=== PATIENT | female | born 1965 | race Caucasian/White ===

== ENCOUNTER 2021-09-27 08:51 | Emergency (ER) | payer OTHER ==
[~2021-09-27] VITALS: Ht 157.4 cm; Wt 79.4 kg
[~2021-09-27 08:51] MED LIST: HYDROCODONE BIT1 T11 PO; ZOFRAN ODT4 MG SL
[2021-09-27 09:40] LABS: BILIRUBIN Negative (Negative); BLOOD Trace-Intact (Negative); CLARITY Cloudy (Clear); COLOR Yellow (Yellow); GLUCOSE Negative (Negative); KETONE 1+ (Negative); LEUKO ESTERASE Negative (Negative); NITRITE Negative (Negative); SPECIFIC GRAVITY >= 1.030 (1.001-1.030)
[2021-09-27 09:40] LABS: BASO % 0.2 % (0.0-1.0); LYMPH % 19.7 % (27.0-41.0); MEAN CELL VOLUME 90.6 fl (81.0-99.0); MEAN CORPUSCULAR HGB 29.9 pg (27.0-31.0); MEAN PLATELET VOLUME 9.2 fl (9.6-12.3); MONO # 0.3 10*3/uL (0.1-1.0); MONO % 5.8 % (3.0-9.0); NEUT # 3.8 10*3/uL (2.3-7.9); NEUT % 73.9 % (47.0-73.0); PLATELET COUNT AUTOMATED 146 10*3/uL (130-400); RED BLOOD COUNT 5.08 10*6/uL (4.10-5.10); RED CELL DISTRI WIDTH 12.8 % (0-14.5); WHITE BLOOD COUNT 5.2 10*3/uL (4.8-10.8)
[2021-09-27 09:53] LABS: BACTERIA 3+; MUCOUS 2+; RBC 16-20 rbc/hpf (0-2)
[2021-09-27 09:55] LABS: ALBUMIN 2.9 gm/dl (3.1-4.5); ALKALINE PHOSPHATASE 49 U/L (45-117); BUN 12 mg/dl (7-24); CHLORIDE 98 mmol/L (98-107); CREATININE 0.77 mg/dL (0.55-1.02); POTASSIUM 3.5 mmol/L (3.5-5.1); SGOT/AST 33 IU/L (3-35); SGPT/ALT 24 U/L (12-78); SODIUM 133 mmol/L (136-145); TOTAL PROTEIN 6.9 gm/dL (6.4-8.2)
== END 2021-09-27 14:23 | disposition home or self-care (01) ==
LOC: ED 08:51
PROVIDERS: Emergency Medicine
DX: U07.1 COVID-19 (principal); J12.82 Pneumonia due to coronavirus disease 2019